=== PATIENT | male | born 1950 | race Caucasian/White ===

== ENCOUNTER → 2017-06-23 | Outpatient (REF) | payer OTHER | LOC: M LAB REF 15:46 | DX: R05 Cough (principal) | CPT/HCPCS: 87633 ==

== ENCOUNTER 2019-03-13 17:28 | Emergency (ER) | payer MEDICARE, OTHER ==
[~2019-03-13] VITALS: Ht 175.3 cm; Wt 90.9 kg
[2019-03-13] MEDS ORDERED: LIDOCAINE 1% MDV 20ML VIAL IM ONE (19:00)
[2019-03-13] MEDS ORDERED: IBUPROFEN 600 MG TAB PO ONE (19:00)
--- NOTE | 2019-03-13 19:53 | REP ---
RIGHT HAND SERIES: Four views of the right hand are performed. Somewhat comminuted nondisplaced fracture is seen of the 4th proximal phalanx. There is a nondisplaced fracture of the base of the 3rd proximal phalanx. There is a slightly displaced fracture of the distal 5th metacarpal. No other fracture or dislocation is seen. There is significant joint space narrowing at the 3rd metacarpophalangeal joint. There is diffuse narrowing of the interphalangeal joints. There is some air in the anterior soft tissues. IMPRESSION: Nondisplaced fracture base of 3rd proximal phalanx. Nondisplaced comminuted fracture 4th proximal phalanx. Slightly displaced fracture distal aspect of 5th metacarpal. Electronically Signed by Giovanni Marrero MD 03/15/2019 09:10 A
[2019-03-13] MEDS ORDERED: CEPHALEXIN 500 MG CAP PO ONE ×2 (20:45→21:00)
[2019-03-13] MEDS ORDERED: cefTRIAXone SOD 1 GM in D5W MINI-BAG PLUS 50 ML IV ONE (21:00)
[2019-03-13] MEDS ORDERED: NORC1TAB7 PO (21:01)
[2019-03-13] MEDS ORDERED: KEFL500C17 PO (21:01)
[2019-03-13] MEDS ORDERED: LIDOCAINE 1% SDV 5 ML VIAL DILUENT ONE (21:15)
[2019-03-13] MEDS ORDERED: cefTRIAXone SOD 1 GM VIAL (J0696) IM ONE (21:15)
[2019-03-13] MEDS ORDERED: ADACEL/BOOSTRIX VACCINE (DIPHTH/PERTUSS/ACELL/TETANUS)0.5ML SYR (90715) IM ONE (22:15)
[2019-03-13] MEDS ORDERED: NORCO 5/325MG TABLET (BULK FOR ED) PO ONE (22:30)
[2019-03-13 22:37] VITALS: BP 191/90
== END 2019-03-13 22:41 | disposition home or self-care (01) ==
LOC: M ED 17:28
DX: S62.642A Nondisplaced fracture of proximal phalanx of right middle finger, initial encounter for closed fracture (principal); S62.644A Nondisplaced fracture of proximal phalanx of right ring finger, initial encounter for closed fracture; S62.316A Displaced fracture of base of fifth metacarpal bone, right hand, initial encounter for closed fracture; S61.411A Laceration without foreign body of right hand, initial encounter; S61.212A Laceration without foreign body of right middle finger without damage to nail, initial encounter; T14.8XXA Other injury of unspecified body region, initial encounter; W23.0XXA Caught, crushed, jammed, or pinched between moving objects, initial encounter; Y92.099 Unspecified place in other non-institutional residence as the place of occurrence of the external cause; Y93.89 Activity, other specified; Y99.9 Unspecified external cause status
CPT/HCPCS: 12002; 29125; 73130; 90471; 90715; 96372; 99283; J0696

== ENCOUNTER 2020-03-22 17:12 | Inpatient (IN) | payer MEDICARE, OTHER ==
[~2020-03-22] VITALS: Ht 172.7 cm; Wt 98.6 kg
[~2020-03-22 17:12] MED LIST: KEFL500C17 PO; NORC1TAB7 PO
[2020-03-22] MEDS ORDERED: HYDR12CA PO (17:27)
[2020-03-22] MEDS ORDERED: VITA50005 PO (17:27)
[2020-03-22 18:03] LABS: BASO % 0.4 % (0.0-1.0); EOS # 0.1 10^3/uL (0.0-0.5); EOS % 0.9 % (0.0-3.0); HEMATOCRIT 52.5 % (42.0-52.0); HEMOGLOBIN 18.4 g/dl (13.5-17.5); LYMPH # 1.3 10^3/uL (1.5-5.0); LYMPH % 23.8 % (24.0-44.0); MEAN CORPUSCULAR HEMOGLOBIN 32.2 pg (27.0-33.0); MEAN CORPUSCULAR VOLUME 91.8 fl (80.0-96.0); MONO # 0.6 10^3/uL (0.0-0.8); MONO % 10.5 % (0.0-5.0); NEUTROPHILS # 3.6 10^3/uL (1.5-8.5); PLATELET COUNT, AUTOMATED 216 10^3/uL (150-450); RED BLOOD COUNT 5.72 10^6/uL (4.30-6.10); WHITE BLOOD COUNT 5.6 10^3/uL (4.0-10.0)
[2020-03-22 18:14] LABS: INR 0.97; PARTIAL THROMBOPLASTIN TIME 25.6 SECONDS (24.2-38.5); PROTHROMBIN TIME 13.1 SECONDS (12.5-14.3)
[2020-03-22 18:42] LABS: ALBUMIN 3.9 GM/DL (3.2-5.2); ALT/SGPT 503 U/L (12-78); BILIRUBIN,DIRECT 8.1 MG/DL (0.0-0.2); BILIRUBIN,TOTAL 10.5 MG/DL (0.2-1.0); BLOOD UREA NITROGEN 15 MG/DL (7-18); CARBON DIOXIDE LEVEL 27 MEQ/L (21-32); CHLORIDE LEVEL 100 MEQ/L (98-107); CK-MB VALUE MASS 1.5 NG/ML (<3.6); CPK CREATINE PHOSPHOKINASE 144 U/L (39-308); CREATININE FOR GFR 0.93 MG/DL (0.70-1.30); GLOMERULAR FILTRATION RATE > 60.0 (>49); GLUCOSE, FASTING 87 MG/DL (70-100); LIPASE 128 U/L (73-393); MB/CK RELATIVE INDEX 1.04 (< OR =4); POTASSIUM SERUM 3.1 MEQ/L (3.5-5.1); SODIUM LEVEL 138 MEQ/L (136-145); TOTAL PROTEIN 7.2 GM/DL (6.4-8.2); TROPONIN I < 0.02 NG/ML (< 0.10)
[2020-03-22] MEDS ORDERED: POTASSIUM CHLORIDE 10 MEQ SR TABLET PO ONE (20:00)
[2020-03-22] MEDS: GASTROGRAFIN SOLUTION 30ML PO SCH ×2 (20:35→21:00)
[2020-03-22] MEDS ORDERED: ISOVUE-370 76% 100ML VIAL As Ordered ONE (20:42)
--- NOTE | 2020-03-22 20:53 | ECGEPIP ---
[facility] - ED Test Date: 2020-03-22 Pat Name: WINTER HOYOS JR Department: Room: - Gender: Male Packing Checker: : 1950 Requested By: GEE Pittman Order Number: [id number] Reading MD: Maira Michael Measurements Intervals [place] Rate: 82 P: 30 DC: 166 QRS: 35 QRSD: 97 T: -10 QT: 372 QTc: 437 Interpretive Statements SINUS RHYTHM INFERIOR MYOCARDIAL INFARCTION, PROBABLY OLD NO PRIOR Electronically Signed on 03-22-2020 20:53:14 EDT by Maira Michael
--- NOTE | 2020-03-22 22:11 | REPVR ---
PROCEDURE INFORMATION: Exam: CT Abdomen And Pelvis With Contrast Exam date and time: 03/22/2020 9:55 PM Age: 69 years old Clinical indication: Abdominal pain; Additional info: Upper abd pain jaundiced TECHNIQUE: Imaging protocol: Computed tomography of the abdomen and pelvis with intravenous contrast. Radiation optimization: All CT scans at this facility use at least one of these dose optimization techniques: automated exposure control; mA and/or kV adjustment per patient size (includes targeted exams where dose is matched to clinical indication); or iterative reconstruction. Contrast material: ISOVUE 370; Contrast volume: 100 ml; Contrast route: INTRAVENOUS (IV); COMPARISON: No relevant prior studies available. FINDINGS: Liver: There is a diffuse decrease in hepatic parenchymal density, consistent with steatosis. Gallbladder and bile ducts: There are gallstones present. Mild gallbladder wall thickening. Clinical correlation to exclude cholecystitis suggested. No dilatation of the intra or extrahepatic biliary tree. Pancreas: Normal. No ductal dilation. Spleen: The spleen demonstrates punctate calcifications, consistent with remote granulomatous organism exposure. Adrenals: Normal. No mass. Kidneys and ureters: Bilateral simple renal cysts measure up to 1.9 cm in the left kidney. No follow-up suggested. Stomach and bowel: Moderate diverticulosis is present in the distal colon. No diverticulitis. Appendix: No evidence of appendicitis. Intraperitoneal space: Unremarkable. No free air. No significant fluid collection. Vasculature: The aortoiliac vessels demonstrate mild atherosclerotic calcification. Lymph nodes: Unremarkable. No enlarged lymph nodes. Urinary bladder: Unremarkable as visualized. Reproductive: The prostate gland demonstrates marked hyperplasia. Bones/joints: Mild anterolisthesis of L4 on L5. Mild central spinal stenosis L2-L3, moderate to severe central spinal stenosis L3-L4 and severe central spinal stenosis L4-L5. Soft tissues: Unremarkable. Other findings: Levoscoliosis. IMPRESSION: 1. There is a diffuse decrease in hepatic parenchymal density, consistent with steatosis. 2. There are gallstones present. Mild gallbladder wall thickening. Clinical correlation to exclude cholecystitis suggested. 3. Bilateral simple renal cysts measure up to 1.9 cm in the left kidney. No follow-up suggested. 4. Moderate diverticulosis is present in the distal colon. No diverticulitis. 5. Marked prostatic hyperplasia. COMMENTS: Consistent with the [employer]'s Incidental Findings Committee white paper (J Am Julissa Radiol 2018): Any incidental renal lesion less than 1 cm or classified as too small to characterize, or any incidental cystic renal lesion characterized as simple-appearing, is likely benign. No follow-up imaging is recommended for these lesions per consensus recommendations based on imaging criteria. Electronically signed by: Vicente Segovia On 03/22/2020 22:10:56 PM
--- NOTE | 2020-03-22 23:26 | HPEPDOC ---
General Date of Admission 03/22/20 Date of Service: Mar 22, 2020 Chief Complaint The patient is a 69-year-old male admitted with a reason for visit of Skin Issue. Source: Patient Exam Limitations: No limitations Timing/Duration: Day(s) Severity: Moderate Associated Symptoms: Loss of appetite History of Present Illness Patient is 69 years old male with past medical history of hypertension presented to the hospital with abdominal pain and jaundice. Patient stated that for past 3-4 days he has been having right upper quadrant pain, dark urine, nausea, vomiting and loss of appetite. In ER patient was found to have no leukocytosis, hemoglobin 18.4, total bilirubin 10.5, direct bilirubin 8.1, transaminitis, alkaline phosphatase 190. CT abdomen pelvis There is a diffuse decrease in h epatic parenchymal density, consistent with steatosis. There are gallstones present. Mild gallbladder wall thickening. Clinical correlation to exclude cholecystitis suggested. Home Medications Miscellaneous Medications Ergocalciferol (Vitamin D2) (Vitamin D2) 50,000 Units Cap, (Reported) Hydrochlorothiazide (Hydrochlorothiazide) 12.5 Mg Capsule, (Reported) Allergies Coded Allergies: No Known Allergies (Unverified , 03/13/19) Past Medical History Medical History Hypertension Family History Father had Parkinson Mother had colon cancer Social History * Smoker: Denies Alcohol: Denies Drugs: denies A-FIB/CHADSVASC A-FIB History Current/History of A-Fib/PAF?: No Current PO Anticoag Therapy: No Review of Systems Constitutional: Denies: Chills Eyes: Denies: Pain ENT: Denies: Head Aches, Ear Pain Skin: Reports: Jaundice; Denies: Rash Pulmonary: Denies: Dyspnea, Cough Cardiovascular: Denies: Chest Pain, Palpitations Gastrointestinal: Reports: Nausea, Vomiting Genitourinary: Denies: Dysuria, Frequency Hematologic: Denies: Bruising, Bleeding Excessively Endocrine: Denies: Polydipsia Musculoskeletal: Denies: Neck Pain, Back Pain Neurological: Denies: Weakness Psych: Reports: Mood Normal Physical Examination General Exam: Positive: Alert, Cooperative Eye Exam: Positive: PERRLA ENT Exam: Positive: Atraumatic Neck Exam: Positive: Supple; Negative: JVD Chest Exam: Positive: Clear to auscultation Heart Exam: Positive: Rate Normal Telemetry: Positive: No significant arrhythmia Abdomen Exam: Positive: BS Hypoactive, Tenderness (right upper quadrant) Extremity Exam: Negative: Clubbing Skin Exam: Negative: Nl turgor and temperature Neuro Exam: Positive: Strength at 5/5 X4 ext, Cranial Nerves 3-12 NL Psych Exam: Positive: Mental status NL Vital Signs Vital Signs Date Time Temp Pulse Resp B/P (MAP) Pulse Ox O2 Delivery O2 Flow Rate FiO2 03/22/20 20:30 84 171/83 (112) 95 03/22/20 19:15 18 Room Air 03/22/20 19:10 98.5 Laboratory Data Labs 24H Laboratory Tests 2 03/22/20 17:31: Immature Granulocyte % (Auto) 0.4, Neutrophils (%) (Auto) 64.0, Lymphocytes (%) (Auto) 23.8L, Monocytes (%) (Auto) 10.5H, Eosinophils (%) (Auto) 0.9, Basophils (%) (Auto) 0.4, Neutrophils # (Auto) 3.6, Lymphocytes # (Auto) 1.3L, Monocytes # (Auto) 0.6, Eosinophils # (Auto) 0.1, Basophils # (Auto) 0.0, Nucleated Red Blood Cells % (auto) 0.0, Anion Gap 11, Glomerular Filtration Rate > 60.0, Calcium Level 9.0, Total Bilirubin 10.5H, Direct Bilirubin 8.1H, Aspartate Amino Transf (AST/SGOT) 203H, Alanine Aminotransferase (ALT/SGPT) 503H, Alkaline Phosphatase 190H, Total Creatine Kinase 144, Creatine Kinase MB 1.5, Creatine Kinase MB Relative Index 1.04, Troponin I < 0.02, Total Protein 7.2, Albumin 3.9, Albumin/Globulin Ratio 1.2, Lipase 128 03/22/20 17:32: Prothrombin Time 13.1, Prothromb Time International Ratio 0.97, Activated Partial Thromboplast Time 25.6 CBC/BMP Laboratory Tests 03/22/20 17:31 Assessment/Plan Patient is 69 years old male with past medical history of hypertension presented to the hospital with abdominal pain and jaundice. Patient stated that for past 3-4 days he has been having right upper quadrant pain, dark urine, nausea, vomiting and loss of appetite. In ER patient was found to have no leukocytosis, hemoglobin 18.4, total bilirubin 10.5, direct bilirubin 8.1, transaminitis, alkaline phosphatase 190. CT abdomen pelvis There is a diffuse decrease in hepatic parenchymal density, consistent with steatosis. There are gallstones present. Mild gallbladder wall thickening. Clinical correlation to exclude cholecystitis suggested. Problems (1) Jaundice Status: Acute Problem Specific Plan: Consult Specialist Problem Text: Most likely secondary to choledocholithiasis CT is positive for gallstones Await ultrasound right upper quadrant Consider GI consult in the morning Nothing by mouth for now IV fluid Hepatitis panel ordered (2) Hyperbilirubinemia Status: Acute Problem Text: Most likely secondary to choledocholithiasis Await right upper quadrant ultrasound (3) Hypertensive urgency Status: Acute Problem Text: Added lisinopril 20 mg Continue to monitor Plan / VTE VTE Prophylaxis Ordered?: Yes LAURA NASSAR DO Mar 22, 2020 23:26
[2020-03-23] MEDS ORDERED: lisinopriL 20 MG TAB PO ONE
[2020-03-23] MEDS: NS 1,000 ML IV SCH ×3 (00:34→20:13)
--- NOTE | 2020-03-23 00:36 | REPVR ---
PROCEDURE INFORMATION: Exam: US Abdomen, Limited; Right Upper Quadrant Exam date and time: 03/23/2020 12:22 AM Age: 69 years old Clinical indication: Abnormal findings; Abnormal lab test; Elevated liver enzymes; Additional info: Elevated lfts eval gb/cbd TECHNIQUE: Imaging protocol: US abdomen. Real time ultrasound with image documentation. Limited exam focused on the right upper quadrant. COMPARISON: CT ABD/PEL W/IV ORAL CONTRAS 03/22/2020 9:46 PM FINDINGS: Liver: Normal. No masses. Gallbladder: Cholelithiasis. Gallbladder wall measures up to 4 mm which is mildly thickened. There is sludge within the gallbladder. Small amount of pericholecystic fluid. Common bile duct: Common bile duct measures within normal limits. Pancreas: Pancreas is poorly visualized. Right kidney: Right kidney measures up to 11 cm and is without hydronephrosis. Upper pole simple exophytic cyst measures 2.4 x 1.9 x 1.8 cm. Lower pole simple cyst measures 0.9 x 1.2 x 1.0 cm. IMPRESSION: Cholelithiasis with areas of mild gallbladder wall thickening and mild pericholecystic fluid. Findings raise concern for acute cholecystitis. Electronically signed by: Solitario Blanca On 03/23/2020 00:36:05 AM
[2020-03-23 01:08] VITALS: BP 172/92
[2020-03-23 06:00] VITALS: BP 145/81
[2020-03-23 06:17] LABS: HEMATOCRIT 49.2 % (42.0-52.0); HEMOGLOBIN 17.2 g/dl (13.5-17.5); MEAN CORPUSCULAR HEMOGLOBIN 32.3 pg (27.0-33.0); MEAN CORPUSCULAR VOLUME 92.5 fl (80.0-96.0); PLATELET COUNT, AUTOMATED 219 10^3/uL (150-450); RED BLOOD COUNT 5.32 10^6/uL (4.30-6.10); WHITE BLOOD COUNT 8.7 10^3/uL (4.0-10.0)
[2020-03-23 06:38] LABS: ALBUMIN 3.3 GM/DL (3.2-5.2); ALT/SGPT 441 U/L (12-78); BLOOD UREA NITROGEN 14 MG/DL (7-18); CALCIUM LEVEL 8.7 MG/DL (8.8-10.2); CARBON DIOXIDE LEVEL 25 MEQ/L (21-32); CHLORIDE LEVEL 101 MEQ/L (98-107); GLOMERULAR FILTRATION RATE > 60.0 (>49); GLUCOSE, FASTING 76 MG/DL (70-100); MAGNESIUM LEVEL 2.3 MG/DL (1.8-2.4); POTASSIUM SERUM 3.2 MEQ/L (3.5-5.1); SODIUM LEVEL 136 MEQ/L (136-145); TOTAL PROTEIN 6.9 GM/DL (6.4-8.2)
[2020-03-23] MEDS: lisinopriL 20 MG TAB PO SCH (08:45)
[2020-03-23] MEDS: hydroCHLOROthiazide 12.5 MG CAPSULE PO SCH (08:45)
[2020-03-23] MEDS: HEPARIN SOD (PORCINE) 5000UNITS/ML 1ML VIAL/SYRINGE SC SCH ×2 (08:46→20:14)
[2020-03-23] MEDS: PIPERACILLIN/TAZOBACTAM SOD 3.375 GM in D5W MINI-BAG PLUS 50 ML IV SCH ×3 (11:11→22:16)
[2020-03-23 11:36] LABS: HEPATITIS B SURFACE ANTIGEN NEGATIVE (NEGATIVE)
[2020-03-23 12:03] LABS: HEPATITIS C VIRUS ABY INDEX 0.1 INDEX (<0.8)
[2020-03-23 12:04] LABS: HEPATITIS B CORE ANTIBODY IGM NEGATIVE (NEGATIVE)
[2020-03-23 12:05] LABS: HEPATITIS A ANTIBODY IGM NEGATIVE (NEGATIVE)
[2020-03-23] MEDS ORDERED: POTASSIUM CHLORIDE 10 MEQ SR TABLET PO ONE (12:30)
[2020-03-23 13:44] VITALS: BP 148/82
--- NOTE | 2020-03-23 13:51 | IPNPDOC ---
Text Note Date of Service The patient was seen on 03/23/20. NOTE Patient was signed and examined by me this morning. The patient states that he still has this nausea and abdominal pain which is mostly on the right side, he also complains of having a lot of hesitancy and initiating the urine and states he has gone around 6-8 times within a span of couple of hours and feels that he is not completely emptying his bladder. PHYSICAL EXAMINATION: General: The patient is awake, alert, oriented x3, sitting up in the bed in no apparent distress. Head and Neck Exam: Extraocular muscles intact. Pupils equally round and reactive to light. Mucous membranes are moist. Neck is supple. There is no jugular venous distention (JVD). Cardiovascular: S1 and S2, regular rate. Trace edema of the bilateral lower ex tremities. Respiratory: Mild inspiratory crackles at the right base, mildly decreased breath sounds at the left side. Abdomen: Mild tenderness in the right upper quadrant and periumbilical area . P ositive bowel sounds. Nontender. No organomegaly. Genitourinary: Suprapubic tenderness. Musculoskeletal: Clubbing of the fingernails, no cyanosis was noted. Central Nervous System (CAD DRAFTSMAN): No focal deficit. Power is 5/5 in all extremities. Labs reviewed Radiology reviewed Assessment/Plan Patient is 69 years old male with past medical history of hypertension presented to the hospital with abdominal pain and was found to be jaundiced . Patient stated that for past 3-4 days he has been having right upper quadrant pain, dark urine, nausea, vomiting and loss of appetite. In ER patient was found to have no leukocytosis, hemoglobin 18.4, total bilirubin 10.5, direct bilirubin 8.1, transaminitis, alkaline phosphatase 190. CT abdomen pelvis There is a diffuse decrease in hepatic parenchymal density, consistent with steatosis. There are gallstones present. Mild gallbladder wall thickening. The patient was admitted for possible cholecystitis and obstructive jaundice Problems 1. Obstructive jaundice with possible cholecystitis. CT scan and ultrasound pointing towards obstructive pathology with possible cholecystitis. Patient has been started on IV Zosyn and surgery consult with Dr. Greenberg has been requested. No IV fluids and nothing by mouth at this time. Pain control with IV morphine. Continue pending the LFTs. Hepatitis panel also has been ordered. 2. Hypertension. Continue home medications and added lisinopril at this time. We'll continue to monitor Disposition. Depending upon surgical recommendations. VS,Fishbone, I+O VS, Fishbone, I+O Laboratory Tests 03/22/20 17:31 03/23/20 05:30 Vital Signs Date Time Temp Pulse Resp B/P (MAP) Pulse Ox O2 Delivery O2 Flow Rate FiO2 03/23/20 13:44 98.1 80 16 148/82 (104) 96 Room Air I&O- Last 24 Hours up to 6 AM 03/23/20 06:00 Intake Total 550 ml Output Total 300 ml Balance 250 ml WALE ROMEO MD Mar 23, 2020 13:51
[2020-03-23 22:00] VITALS: BP 140/74
[2020-03-24] MEDS: PIPERACILLIN/TAZOBACTAM SOD 3.375 GM in D5W MINI-BAG PLUS 50 ML IV SCH ×3 (05:00→17:28)
[2020-03-24 06:00] VITALS: BP 134/73
[2020-03-24 06:14] LABS: BASO % 0.3 % (0.0-1.0); EOS # 0.1 10^3/uL (0.0-0.5); EOS % 1.2 % (0.0-3.0); HEMATOCRIT 49.4 % (42.0-52.0); HEMOGLOBIN 16.5 g/dl (13.5-17.5); LYMPH # 1.4 10^3/uL (1.5-5.0); LYMPH % 20.4 % (24.0-44.0); MEAN CORPUSCULAR HEMOGLOBIN 31.4 pg (27.0-33.0); MEAN CORPUSCULAR HGB CONC 33.4 g/dl (32.0-36.5); MEAN CORPUSCULAR VOLUME 94.1 fl (80.0-96.0); MONO # 0.7 10^3/uL (0.0-0.8); MONO % 9.8 % (0.0-5.0); NEUTROPHILS # 4.7 10^3/uL (1.5-8.5); NEUTROPHILS % 67.9 % (36.0-66.0); PLATELET COUNT, AUTOMATED 236 10^3/uL (150-450); RED BLOOD COUNT 5.25 10^6/uL (4.30-6.10); WHITE BLOOD COUNT 6.9 10^3/uL (4.0-10.0)
[2020-03-24 06:34] LABS: ALBUMIN 3.3 GM/DL (3.2-5.2); ALT/SGPT 472 U/L (12-78); BILIRUBIN,TOTAL 3.9 MG/DL (0.2-1.0); BLOOD UREA NITROGEN 16 MG/DL (7-18); CALCIUM LEVEL 8.6 MG/DL (8.8-10.2); CARBON DIOXIDE LEVEL 25 MEQ/L (21-32); CHLORIDE LEVEL 104 MEQ/L (98-107); CREATININE FOR GFR 0.89 MG/DL (0.70-1.30); GLOMERULAR FILTRATION RATE > 60.0 (>49); GLUCOSE, FASTING 78 MG/DL (70-100); POTASSIUM SERUM 3.8 MEQ/L (3.5-5.1); SODIUM LEVEL 138 MEQ/L (136-145); TOTAL PROTEIN 6.5 GM/DL (6.4-8.2)
--- NOTE | 2020-03-24 08:00 | CR ---
DATE OF CONSULTATION: 03/23/2020 REASON FOR CONSULTATION: Elevated liver function tests and hyperbilirubinemia with possible cholecystitis. CONSULTING PHYSICIAN: Dr. Padilla. HISTORY OF PRESENT ILLNESS: The patient is a very pleasant 69-year-old man who reports that he noted for several days that his urine became a dark orangey color. He also noted some fairly diffuse abdominal pain with some abdominal fullness and bloating. In discussing this with him, he remembered that he had a meal of [employer] [place] fries and other foods on night, the , and noticed abdominal pain thereafter. It was the next day that he noticed some darkening of his urine. Since then, he has had persistent dark urine. On Monday the , he actually had some nausea and vomited at least once. Because of his persistent symptoms, he was seen in the emergency department on the . His labs showed a total bilirubin up to 10.5 with a direct bilirubin of 8.1. His other liver function tests were elevated, but not dramatically so. He underwent further evaluation including a gallbladder ultrasound and a CT scan of the abdomen and pelvis. The CT showed gallstones and suggested some mild gallbladder wall thickening. The ultrasound was interpreted as showing cholelithiasis with some mild thickening of the gallbladder wall. Because of these findings, the question of acute cholecystitis was raised, and I have been asked to evaluate the patient. ALLERGIES: The patient has no known drug allergies. HOME MEDICATIONS: - hydrochlorothiazide 12.5 mg daily. - vitamin D2 at 50,000 units p.o. weekly. PAST MEDICAL HISTORY: Significant only for some hypertension. He did not have a regular physician for quite some time until last year, when he injured his hand and was found to be hypertensive during the course of treatment for that. He now sees a doctor at the [facility] Dr. Boland. PAST SURGICAL HISTORY: Negative. SOCIAL HISTORY: The patient is . 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 He is a never smoker and denies any alcohol use. FAMILY HISTORY: Non-contributory. REVIEW OF SYSTEMS: He denies any chest pains, palpitations, or history of heart disease. He has had no cough, wheezing, or sputum production. He denies any history of diabetes or thyroid issues. He has had a kidney stone in the past. He does report some mild prostate enlargement symptoms with nocturia x1 and a weakened stream. These symptoms have worsened while here in the hospital. He denies any significant bone or joint issues. He has no history of deep vein thrombosis (DVT) or pulmonary embolus. He has no history of seizure, stroke, or chronic severe headaches. PHYSICAL EXAMINATION: GENERAL: Reveals a pleasant older man in no obvious acute distress. The patient is pleasant and alert. VITAL SIGNS: His most recent vital signs show a temperature of 98.1, pulse of 80, respirations of 16, and a blood pressure of 148/82. Room air oxygen saturation is in the mid to upper 90s. SKIN: Warm and dry. He is jaundiced, which is most noticeable in the sclerae, but he also appears somewhat generalized jaundice of the skin. NECK: Supple without mass and he has no carotid bruit. HEART: Shows a regular rate and rhythm. LUNGS: Clear to auscultation bilaterally. ABDOMEN: Quite protuberant and rounded. He has active bowel sounds. The abdomen is full, but still fairly soft. He does not have significant tenderness to palpation. There is no palpable mass. There is no fluid wave. EXTREMITIES: Show no peripheral edema. He has palpable radial and pedal pulses bilaterally. LABORATORY STUDIES: At the time of admission, showed a white count of 6, hemoglobin 18, hematocrit 52, and platelet count of 216,000. His differential count was normal. This morning, the repeat showed a white count of 9, hemoglobin 17, hematocrit 49. Chemistry profile from the evening of the , showed a total bilirubin of 10, direct of 8, AST 203, ALT 503, and alkaline phosphatase of 190. This morning, his total bilirubin was 6.0 with an AST of 195, ALT 441, and an alkaline phosphatase of 174. Potassium was slightly low at 3.1 and 3.2. He had a hepatitis A, B, and C panel that was all negative. His gallbladder ultrasound and CT imaging I reviewed. He has definite gallstones. There is some very mild patchy thickening of the gallbladder wall. I think the CT scan actually shows some dilation of his bile duct coursing through the head of the pancreas and in fact, there may be a small filling defect on one of the images. IMPRESSION: I think the patients history is pretty typical of obstruction from a common bile duct stone. I do not believe he has acute cholecystitis. The mild gallbladder wall thickening I think is just a response to the obstruction. I believe that the next step would probably most appropriately be an endoscopic retrograde cholangiopancreatography (ERCP), although I will leave it to the supervisor publications production to determine if magnetic resonance cholangiopancreatography (MRCP) is necessary first. If his common bile duct can be cleared of stones or debris, then I would be happy to proceed with a cholecystectomy after that. I spoke with the patient and his spouse about my interpretation of his studies and that a gastroenterology consultation would be appropriate. Certainly it is appropriate for him to be on antibiotics just to prevent the possibility of cholangitis. PLAN: I contacted the resident on duty [facility] to relay my interpretation of this consultation so that he could pass this along to the hospitalist and possibly speak with Dr. Degroot, who is apparently solution lead for gastroenterology. I will check in on the patient again tomorrow. MARTY
[2020-03-24] MEDS: NS 1,000 ML IV SCH ×2 (08:11→17:28)
[2020-03-24] MEDS: hydroCHLOROthiazide 12.5 MG CAPSULE PO SCH (08:13)
[2020-03-24] MEDS: HEPARIN SOD (PORCINE) 5000UNITS/ML 1ML VIAL/SYRINGE SC SCH ×2 (08:14→20:36)
[2020-03-24] MEDS: lisinopriL 20 MG TAB PO SCH (08:14)
[2020-03-24 14:00] VITALS: BP 149/78
--- NOTE | 2020-03-24 14:03 | IPNPDOC ---
Text Note Date of Service The patient was seen on 03/24/20. NOTE Patient was signed and examined by me this morning. The patient states that his abdominal pain has been improving. He is scheduled for an MRCP today. PHYSICAL EXAMINATION: General: The patient is awake, alert, oriented x3, sitting up in the bed in no apparent distress. Head and Neck Exam: Extraocular muscles intact. Pupils equally round and reactive to light. Mucous membranes are moist. Neck is supple. There is no jugular venous distention (JVD). Cardiovascular: S1 and S2, regular rate. Trace edema of the bilateral lower extremities. Respiratory: Lungs are clear auscultation bilaterally Abdomen: Mild tenderness in the right upper quadrant and periumbilical area . Positive bowel sounds. Nontender. No organomegaly. Genitourinary: Suprapubic tenderness. Musculoskeletal: Clubbing of the fingernails, no cyanosis was noted. Central Nervous System (DITCH REPAIRER): No focal deficit. Power is 5/5 in all extremities. Labs reviewed Radiology reviewed Assessment/Plan Patient is 69 years old male with past medical history of hypertension presented to the hospital with abdominal pain and was found to be jaundiced . Patient stated that for past 3-4 days he has been having right upper quadrant pain, dark urine, nausea, vomiting and loss of appetite. In ER patient was found to have no leukocytosis, hemoglobin 18.4, total bilirubin 10.5, direct bilirubin 8.1, transaminitis, alkaline phosphatase 190. CT abdomen pelvis There is a diffuse decrease in hepatic parenchymal density, consistent with steatosis. There are gallstones present. Mild gallbladder wall thickening. The patient was admitted for possible cholecystitis and obstructive jaundice. The patient was started on IV Zosyn and surgery was consulted and as per them, they think that the patient probably has a CBD issue rather than a gallbladder issue, and the patient will e ventually require a cholecystectomy as an outpatient. Currently, the patient will be undergoing more sleepy and if there is any pathology seen on MRCP. GI will be consulted for possible ERCP. Currently, the patient's LFTs and bilirubin has been trending down. Problems 1. Obstructive jaundice with possible cholecystitis. CT scan and ultrasound pointing towards obstructive pathology with possible cholecystitis versus choledocholithiasis. Patient has been started on IV Zosyn and surgery consult with Dr. Greenberg and as per them, they think that the patient probably has a CBD issue rather than a gallbladder issue, and the patient will eventually require a cholecystectomy as an outpatient. Currently, the patient will be undergoing more sleepy and if there is any pathology seen on MRCP. GI will be consulted for possible ERCP. Currently, the patient's LFTs and bilirubin has been trending down. 2. Hypertension. Continue home medications and added lisinopril at this time. We'll continue to monitor Disposition. Depending upon MRCP results. VS,Fishbone, I+O VS, Fishbone, I+O Laboratory Tests 03/24/20 05:34 Vital Signs Date Time Temp Pulse Resp B/P (MAP) Pulse Ox O2 Delivery O2 Flow Rate FiO2 03/24/20 08:14 149/76 03/24/20 06:00 98.3 86 18 96 Room Air I&O- Last 24 Hours up to 6 AM 03/24/20 06:00 Intake Total 1750 ml Output Total 2025 ml Balance -275 ml WALE ROMEO MD Mar 24, 2020 14:02
--- NOTE | 2020-03-24 17:41 | REPVR ---
PROCEDURE INFORMATION: Exam: MR Abdomen Without Contrast Exam date and time: 03/24/2020 9:41 AM Age: 69 years old Clinical indication: Abdominal pain; Generalized; Patient HX: Mrcp; Additional info: Cbd stone TECHNIQUE: Imaging protocol: MR of the abdomen without contrast. 3D rendering (Not supervised by radiologist): MIP and/or 3D reconstructed images were created by the technologist. COMPARISON: CT ABD/PEL W/IV ORAL CONTRAS 03/22/2020 9:46 PM FINDINGS: Liver: No mass. Gallbladder and bile ducts: Cholelithiasis is present, with no definite evidence of acute cholecystitis. No evidence of obstructive cholangiopathy. The common bile duct is normal in size measuring maximally 4.0 mm in diameter. A tiny intraductal filling defect suggestive of nonobstructing choledocholithiasis is seen in the mid-distal common bile duct on frame 37 of series 501 and frames 4 through 10 of series 401. No significant intrahepatic biliary ductal dilatation. The differential diagnosis is debris within the common bile duct adherent to the wall of the duct. Pancreas: The pancreas and main pancreatic duct are normal. Spleen: Unremarkable. No splenomegaly. Adrenals: Unremarkable. No mass. Kidneys and ureters: A small 1.9 cm transverse diameter focus of high T2 signal is seen in the mid-pole left kidney, likely representing a Bosniak type I simple cyst. This correlates with the recent CT abdomen and pelvis findings from 03/22/2020. Stomach and bowel: Visualized stomach and intestines are unremarkable. Arteries: No abdominal aortic aneurysm. Bones/joints: Portions of the thoracic and lumbar spine visualized show mild levoscoliosis of the lumbar spine, apex at L2/L3. Soft tissues: Unremarkable. IMPRESSION: 1. Cholelithiasis is present, with no definite evidence of acute cholecystitis. 2. No evidence of obstructive cholangiopathy. The common bile duct is normal in size measuring maximally 4.0 mm in diameter. A tiny intraductal filling defect suggestive of nonobstructing choledocholithiasis is seen in the mid-distal common bile duct on frame 37 of series 501 and frames 4 through 10 of series 401. No significant intrahepatic biliary ductal dilatation. The differential diagnosis is debris within the common bile duct adherent to the wall of the duct. 3. The pancreas and main pancreatic duct are normal. 4. A small 1.9 cm transverse diameter focus of high T2 signal is seen in the mid-pole left kidney, likely representing a Bosniak type I simple cyst. This correlates with the recent CT abdomen and pelvis findings from 03/22/2020. No further follow-up recommended. Reference: Denisse FRANKLIN, Management of the Incidental Renal Mass on CT: A White Paper of the ACR Incidental Findings Committee, J Am Julissa Radiol 2018. 5. Mild levoscoliosis of the lumbar spine, apex at L2/L3. COMMENTS: Consistent with the [employer]'s Incidental Findings Committee white paper (J Am Julissa Radiol 2018): Any incidental renal lesion less than 1 cm or classified as too small to characterize, or any incidental cystic renal lesion characterized as simple-appearing, is likely benign. No follow-up imaging is recommended for these lesions per consensus recommendations based on imaging criteria. Electronically signed by: Albin Youngblood On 03/24/2020 17:41:02 PM
[2020-03-24 22:00] VITALS: BP 141/76
[2020-03-25] MEDS: NS 1,000 ML IV SCH ×2 (04:25→10:06)
[2020-03-25] MEDS: PIPERACILLIN/TAZOBACTAM SOD 3.375 GM in D5W MINI-BAG PLUS 50 ML IV SCH ×5 (04:25→17:38)
[2020-03-25 05:53] LABS: BASO % 0.3 % (0.0-1.0); EOS # 0.1 10^3/uL (0.0-0.5); EOS % 1.8 % (0.0-3.0); HEMATOCRIT 46.2 % (42.0-52.0); HEMOGLOBIN 15.4 g/dl (13.5-17.5); LYMPH # 1.3 10^3/uL (1.5-5.0); LYMPH % 22.1 % (24.0-44.0); MEAN CORPUSCULAR HEMOGLOBIN 31.6 pg (27.0-33.0); MEAN CORPUSCULAR HGB CONC 33.3 g/dl (32.0-36.5); MEAN CORPUSCULAR VOLUME 94.7 fl (80.0-96.0); MONO # 0.6 10^3/uL (0.0-0.8); MONO % 10.6 % (0.0-5.0); NEUTROPHILS # 3.9 10^3/uL (1.5-8.5); NEUTROPHILS % 64.7 % (36.0-66.0); PLATELET COUNT, AUTOMATED 202 10^3/uL (150-450); RED BLOOD COUNT 4.88 10^6/uL (4.30-6.10)
[2020-03-25 06:00] VITALS: BP 151/80
[2020-03-25 06:24] LABS: ALBUMIN 2.9 GM/DL (3.2-5.2); ALT/SGPT 412 U/L (12-78); BILIRUBIN,TOTAL 2.7 MG/DL (0.2-1.0); BLOOD UREA NITROGEN 14 MG/DL (7-18); CALCIUM LEVEL 8.3 MG/DL (8.8-10.2); CARBON DIOXIDE LEVEL 26 MEQ/L (21-32); CHLORIDE LEVEL 105 MEQ/L (98-107); CREATININE FOR GFR 0.85 MG/DL (0.70-1.30); GLOMERULAR FILTRATION RATE > 60.0 (>49); GLUCOSE, FASTING 80 MG/DL (70-100); POTASSIUM SERUM 3.5 MEQ/L (3.5-5.1); SODIUM LEVEL 140 MEQ/L (136-145); TOTAL PROTEIN 6.3 GM/DL (6.4-8.2)
[2020-03-25] MEDS: HEPARIN SOD (PORCINE) 5000UNITS/ML 1ML VIAL/SYRINGE SC SCH ×2 (10:02→20:41)
[2020-03-25] MEDS: hydroCHLOROthiazide 12.5 MG CAPSULE PO SCH (10:04)
[2020-03-25] MEDS: lisinopriL 20 MG TAB PO SCH (10:05)
[2020-03-25] MEDS: TAMSULOSIN 0.4 MG CAP PO SCH (11:35)
[2020-03-25 14:00] VITALS: BP 147/74
--- NOTE | 2020-03-25 17:10 | IPNPDOC ---
Date Seen The patient was seen on 03/25/20. Progress Note SUBJECTIVE: MRI shows no obstructive pathology, although cannot r/o that stone has already passed. Abdominal pain resolved, jaundiced improved. Denies chest pain, sob, fevers, chills. OBJECTIVE: PHYSICAL EXAMINATION: VS: Please see below General: The patient is awake, alert, oriented x3, sitting up in the bed in no apparent distress. Head and Neck Exam: Sclera mildly yellow-improving. Extraocular muscles intact. Pupils equally round and reactive to light. Mucous membranes are moist. Neck is supple. There is no jugular venous distention (JVD). Cardiovascular: S1 and S2, regular rate. Trace edema of the bilateral lower extremities. Respiratory: Lungs are clear auscultation bilaterally Abdomen: No longer has tenderness in right upper quadrant and periumbilical area . Positive bowel sounds. Nontender. No organomegaly. Genitourinary: Deferred Musculoskeletal: Clubbing of the fingernails, no cyanosis was noted. Central Nervous System (INHALATION THERAPY TEACHER): No focal deficit. Power is 5/5 in all extremities. LABORATORY: Please see below IMAGING: MRI ABD: 1. Cholelithiasis is present, with no definite evidence of acute cholecystitis. 2. No evidence of obstructive cholangiopathy. The common bile duct is normal in size measuring maximally 4.0 mm in diameter. A tiny intraductal filling defect suggestive of nonobstructing choledocholithiasis is seen in the mid-distal common bile duct on frame 37 of series 501 and frames 4 through 10 of series 401. No significant intrahepatic biliary ductal dilatation. The differential diagnosis is debris within the common bile duct adherent to the wall of the duct. 3. The pancreas and main pancreatic duct are normal. 4. A small 1.9 cm transverse diameter focus of high T2 signal is seen in the mid-pole left kidney, likely representing a Bosniak type I simple cyst. This correlates with the recent CT abdomen and pelvis findings from 03/22/2020. No further follow-up recommended. 5. Mild levoscoliosis of the lumbar spine, apex at L2/L3. ASSESSMENT: Patient is 69 years old male with past medical history of hypertension presented to the hospital with abdominal pain admitted for acute cholecystitis, questionable biliary tree obstruction. PLAN: 1. Acute cholecystitis, cannot r/o biliary tree stone that has passed -AST/ALT, alk phos, jaundice improving -WBC wnl, afebrile -Abdominal pain resolved. -MRI abd above. -Per GI, likely acute cholecystitis and common to see liver inflammation with elevated AST/ALT, jaundice. -Surgery: likely needing o/p cholecystectomy -At this time advancing diet as tolerated, c/w Zosyn (will need to c/w 10 days total of abx) -F/u CMP in the AM. 2. Hypertension. -Increased likely 2/2 to IVFs -C/w home meds, can give dose of lasix if needed. 3. DVT px -heparin DISPOSITION: If tolerates diet and abdominal pain does not return, will consider early discharge in the AM. Will need f/u with both PCP and Dr. Greenberg (surgery) at discharge. VS, I&O, 24H, Fishbone Vital Signs/I&O Vital Signs Date Time Temp Pulse Resp B/P (MAP) Pulse Ox O2 Delivery O2 Flow Rate FiO2 03/25/20 14:00 97.9 77 18 147/74 (98) 96 Room Air I&O- Last 24 Hours up to 6 AM 03/25/20 06:00 Intake Total 1100 ml Output Total 850 ml Balance 250 ml Laboratory Data 24H LABS Laboratory Tests 2 03/25/20 05:29: Immature Granulocyte % (Auto) 0.5, Neutrophils (%) (Auto) 64.7, Lymphocytes (%) (Auto) 22.1L, Monocytes (%) (Auto) 10.6H, Eosinophils (%) (Auto) 1.8, Basophils (%) (Auto) 0.3, Neutrophils # (Auto) 3.9, Lymphocytes # (Auto) 1.3L, Monocytes # (Auto) 0.6, Eosinophils # (Auto) 0.1, Basophils # (Auto) 0.0, Nucleated Red Blood Cells % (auto) 0.0, Anion Gap 9, Glomerular Filtration Rate > 60.0, Calcium Level 8.3L, Total Bilirubin 2.7H, Aspartate Amino Transf (AST/SGOT) 177H, Alanine Aminotransferase (ALT/SGPT) 412H, Alkaline Phosphatase 126H, Total Protein 6.3L, Albumin 2.9L, Albumin/Globulin Ratio 0.9 CBC/BMP Laboratory Tests 03/25/20 05:29 Current Medications Current Medications Medications (Trade) Dose Ordered Sig/Henok Route PRN Reason Start Time Stop Time Status Last Admin Dose Admin Diatrizoate Meglum/ Diatrizoate Sod (Gastrografin) 10 ml Q30M PO 03/22/20 19:30 03/22/20 20:01 DC 03/22/20 21:00 Heparin Sodium (Porcine) (Heparin) 5,000 units Q12H SC 03/23/20 09:00 03/25/20 10:02 Home Med (Med Rec Complete!) ASDIRECTED XX 03/22/20 23:45 03/22/20 23:34 DC Hydrochlorothiazide (Hydrodiuril) 12.5 mg DAILY PO 03/23/20 09:00 03/25/20 10:04 Lisinopril (Prinivil) 20 mg DAILY PO 03/23/20 09:00 03/25/20 10:05 Piperacillin Sod/ Tazobactam Sod 3.375 gm/Dextrose 50 ml @ 50 mls/hr Q6H IV 03/23/20 11:00 03/25/20 10:01 Sodium Chloride 1,000 ml @ 100 mls/hr Q10H IV 03/22/20 23:30 03/25/20 10:34 DC 03/25/20 10:06 Tamsulosin HCl (Flomax) 0.4 mg DAILY PO 03/25/20 09:00 03/25/20 11:35 Allergies Coded Allergies: No Known Allergies (Unverified , 03/13/19) Margarita Melendrez MD Mar 25, 2020 17:10
[2020-03-25 22:00] VITALS: BP 147/73
[2020-03-26] MEDS: PIPERACILLIN/TAZOBACTAM SOD 3.375 GM in D5W MINI-BAG PLUS 50 ML IV SCH ×3 (00:03→09:41)
[2020-03-26 06:00] VITALS: BP 143/73
[2020-03-26 06:13] LABS: BASO % 0.5 % (0.0-1.0); EOS # 0.1 10^3/uL (0.0-0.5); EOS % 1.9 % (0.0-3.0); HEMATOCRIT 45.8 % (42.0-52.0); HEMOGLOBIN 15.5 g/dl (13.5-17.5); LYMPH # 1.4 10^3/uL (1.5-5.0); LYMPH % 23.8 % (24.0-44.0); MEAN CORPUSCULAR HEMOGLOBIN 31.9 pg (27.0-33.0); MEAN CORPUSCULAR HGB CONC 33.8 g/dl (32.0-36.5); MEAN CORPUSCULAR VOLUME 94.2 fl (80.0-96.0); MONO # 0.6 10^3/uL (0.0-0.8); MONO % 9.9 % (0.0-5.0); NEUTROPHILS # 3.6 10^3/uL (1.5-8.5); NEUTROPHILS % 63.7 % (36.0-66.0); PLATELET COUNT, AUTOMATED 203 10^3/uL (150-450); RED BLOOD COUNT 4.86 10^6/uL (4.30-6.10); WHITE BLOOD COUNT 5.7 10^3/uL (4.0-10.0)
[2020-03-26 06:37] LABS: ALT/SGPT 393 U/L (12-78); BILIRUBIN,TOTAL 2.3 MG/DL (0.2-1.0); BLOOD UREA NITROGEN 11 MG/DL (7-18); CALCIUM LEVEL 8.7 MG/DL (8.8-10.2); CARBON DIOXIDE LEVEL 29 MEQ/L (21-32); CHLORIDE LEVEL 104 MEQ/L (98-107); CREATININE FOR GFR 0.79 MG/DL (0.70-1.30); GLOMERULAR FILTRATION RATE > 60.0 (>49); GLUCOSE, FASTING 95 MG/DL (70-100); POTASSIUM SERUM 3.3 MEQ/L (3.5-5.1); SODIUM LEVEL 139 MEQ/L (136-145); TOTAL PROTEIN 5.9 GM/DL (6.4-8.2)
[2020-03-26] MEDS ORDERED: LISI-538 PO (08:09)
[2020-03-26] MEDS ORDERED: FLOM0.4C39 PO (08:09)
[2020-03-26] MEDS ORDERED: PROB1CAP10 PO (08:11)
[2020-03-26] MEDS ORDERED: AUGM875T28 PO (08:11)
[2020-03-26] MEDS ORDERED: POTASSIUM CHLORIDE 10 MEQ SR TABLET PO SCH (09:00)
[2020-03-26 09:43] VITALS: BP 139/74
[2020-03-26] MEDS: lisinopriL 20 MG TAB PO SCH (09:43)
[2020-03-26] MEDS: TAMSULOSIN 0.4 MG CAP PO SCH (09:43)
[2020-03-26] MEDS: hydroCHLOROthiazide 12.5 MG CAPSULE PO SCH (09:43)
[2020-03-26] MEDS: HEPARIN SOD (PORCINE) 5000UNITS/ML 1ML VIAL/SYRINGE SC SCH (09:43)
--- NOTE | 2020-03-26 15:41 | DS.PDOC ---
Discharge Summary General Date of Admission Mar 22, 2020 at 23:13 Date of Discharge 03/26/20 Attending Physician: Margarita Melendrez MD Discharge Summary HPI: Patient is 69 years old male with past medical history of hypertension presented to the hospital with abdominal pain and jaundice. Patient stated that for past 3-4 days he has been having right upper quadrant pain, dark urine, nausea, vomiting and loss of appetite. In ER patient was found to have no leukocytosis, hemoglobin 18.4, total bilirubin 10.5, direct bilirubin 8.1, transaminitis, alkaline phosphatase 190. CT abdomen pelvis There is a diffuse decrease in hepatic parenchymal density, consistent with steatosis. There are gallstones present. Mild gallbladder wall thickening. Clinical correlation to exclude cholecystitis suggested. HOSPITAL COURSE: Patient was started on Zosyn and over his hospital stay abnormal AST/ALT, alk phos and bili improved slowly. He was evaluated by surgery who did not think this was a surgical issue at this time but at some point he should have o/p cholecystectomy. MRI abdomen was done, did not show obstruction in biliary tree or gallbladder. GI was curb-sided and believed this was likely acute cholecystitis, requiring continued abx treatment for total of 10 days and f/u with surgery. He tolerated diet well and by 03/26/20 patient much improved. No abdominal pain, chest pain, sob, fevers. he will have f/u with PCP and surgery made prior to discharge. PMH: ?BPH Hypertension FAMILY HISTORY: Father had Parkinson Mother had colon cancer Social History * Smoker: Denies Alcohol: Denies Drugs: denies w. DISCHARGE MEDICATIONS: Please see below. PHYSICAL EXAMINATION: VS: Please see below General: The patient is awake, alert, oriented x3, sitting up in the bed in no apparent distress. Head and Neck Exam: Sclera mildly yellow-improving. Extraocular muscles intact. Pupils equally round and reactive to light. Mucous membranes are moist. Neck is supple. There is no jugular venous distention (JVD). Cardiovascular: S1 and S2, regular rate. Trace edema of the bilateral lower extremities. Respiratory: Lungs are clear auscultation bilaterally Abdomen: . Positive bowel sounds. Nontender. No organomegaly. Genitourinary: Deferred Musculoskeletal: Clubbing of the fingernails, no cyanosis was noted. Central Nervous System (CARDIAC CATH LAB RADIOLOGY TECHNOLOGIST): No focal deficit. Power is 5/5 in all extremities. LABORATORY: Please see below IMAGING: MRI ABD: 1. Cholelithiasis is present, with no definite evidence of acute cholecystitis. 2. No evidence of obstructive cholangiopathy. The common bile duct is normal in size measuring maximally 4.0 mm in diameter. A tiny intraductal filling defect suggestive of nonobstructing choledocholithiasis is seen in the mid-distal common bile duct on frame 37 of series 501 and frames 4 through 10 of series 401. No significant intrahepatic biliary ductal dilatation. The differential diagnosis is debris within the common bile duct adherent to the wall of the duct. 3. The pancreas and main pancreatic duct are normal. 4. A small 1.9 cm transverse diameter focus of high T2 signal is seen in the mid-pole left kidney, likely representing a Bosniak type I simple cyst. This correlates with the recent CT abdomen and pelvis findings from 03/22/2020. No further follow-up recommended. 5. Mild levoscoliosis of the lumbar spine, apex at L2/L3. ASSESSMENT: Patient is 69 years old male with past medical history of hypertension presented to the hospital with abdominal pain admitted for acute cholecystitis, questionable biliary tree obstruction. PLAN: Acute cholecystitis, cannot r/o biliary tree stone that has passed -AST/ALT, alk phos, jaundice improving -WBC wnl, afebrile -Abdominal pain resolved. -MRI abd above. -Per GI, likely acute cholecystitis and common to see liver inflammation with elevated AST/ALT, jaundice. -Surgery: likely needing o/p cholecystectomy -Tolerated advanced diet -C/w augmentin BID x 7 additional days to complete total of 10 days abx -F/u with PCP within 1-2 weeks, surgery as scheduled. Hypertension. -Increased likely 2/2 to IVFs -C/w HCTZ plus lisinopril on d/c Urinary retention likely 2/2 to BPH -Hx of disruption of urinary stream, difficulty urinating at times -Started on flomax daily, f/u with PCP DISPOSITION: D/c home today with f/u with both PCP and Dr. Greenberg (surgery). TIME SPENT ON DISCHARGE: Greater than 30 minutes. Vital Signs/I&Os Vital Signs Date Time Temp Pulse Resp B/P (MAP) Pulse Ox O2 Delivery O2 Flow Rate FiO2 03/26/20 09:43 139/74 10/22/20 06:00 98.2 72 17 97 Room Air I&O- Last 24 Hours up to 6 AM 03/26/20 05:59 Intake Total 2030 ml Output Total 1800 ml Balance 230 ml Laboratory Data Labs 24H Laboratory Tests 2 03/26/20 05:46: Immature Granulocyte % (Auto) 0.2, Neutrophils (%) (Auto) 63.7, Lymphocytes (%) (Auto) 23.8L, Monocytes (%) (Auto) 9.9H, Eosinophils (%) (Auto) 1.9, Basophils (%) (Auto) 0.5, Neutrophils # (Auto) 3.6, Lymphocytes # (Auto) 1.4L, Monocytes # (Auto) 0.6, Eosinophils # (Auto) 0.1, Basophils # (Auto) 0.0, Nucleated Red Blood Cells % (auto) 0.0, Anion Gap 6L, Glomerular Filtration Rate > 60.0, Calcium Level 8.7L, Total Bilirubin 2.3H, Aspartate Amino Transf (AST/SGOT) 167H, Alanine Aminotransferase (ALT/SGPT) 393H, Alkaline Phosphatase 115, Total Protein 5.9L, Albumin 3.0L, Albumin/Globulin Ratio 1.0 CBC/BMP Laboratory Tests 03/26/20 05:46 Discharge Medications Scheduled Amoxicillin/Potassium Clav (Augmentin 875-125 Tablet) 1 Each Tablet, 1 TAB PO BID Ergocalciferol (Vitamin D2) (Vitamin D2) 50,000 Units Cap, 50,000 UNITS PO QWEEK, (Reported) Hydrochlorothiazide (Hydrochlorothiazide) 12.5 Mg Capsule, 12.5 MG PO DAILY, (Re ported) Lactobacillus Acidophilus (Probiotic Acidophilus) 1.5 Mg Capsule, 1 CAP PO BIDWM Lisinopril (Lisinopril) 20 Mg Tablet, 20 MG PO DAILY Tamsulosin HCl (Flomax) 0.4 Mg Capsule, 0.4 MG PO DAILY Allergies Coded Allergies: No Known Allergies (Unverified , 03/13/19) Margarita Melendrez MD Mar 26, 2020 15:41
== END 2020-03-26 12:36 | disposition home or self-care (01) | DRG 446 ==
LOC: M ED 17:12 → M ED INP 23:13 → ENRESERV 23:37 → M MSPAV 03-23 01:04
PROVIDERS: ADMIT Internal Medicine; ATTEND Internal Medicine
DX: K80.71 Calculus of gallbladder and bile duct without cholecystitis with obstruction (principal); I10 Essential (primary) hypertension; N40.0 Benign prostatic hyperplasia without lower urinary tract symptoms; R33.9 Retention of urine, unspecified; Z79.899 Other long term (current) drug therapy; I16.0 Hypertensive urgency

== ENCOUNTER → 2020-05-07 | Outpatient (CLI) | payer MEDICARE, OTHER ==
[~2020-05-07] MED LIST changes: +AUGM875T28 PO; +FLOM0.4C39 PO; +HYDR12CA PO; +LISI-538 PO; +PROB1CAP10 PO; +PROBCAP14 PO; +VITA50005 PO
== END ==
LOC: M LABSMTC 10:53
PROVIDERS: ATTEND Anesthesiology
DX: Z01.812 Encounter for preprocedural laboratory examination (principal); Z20.828 Contact with and (suspected) exposure to other viral communicable diseases

== ENCOUNTER 2020-05-12 07:29 | Day surgery (SDC) | payer MEDICARE, OTHER ==
[~2020-05-12] VITALS: Ht 170.2 cm; Wt 94.8 kg
[~2020-05-12 07:29] MED LIST changes: +LR 1,000 ML IV ONE; +ceFAZolin SOD 2 GM in IV 1 EA IV ONE
[2020-05-12] MEDS ORDERED: MIDAZOLAM INJ 2MG/2ML VIAL (J2250 PER 1MG) As Ordered ONE (07:56)
[2020-05-12] MEDS ORDERED: LIDOCAINE 2% 100MG/5ML SDV (FOR ANES.) As Ordered ONE (07:56)
[2020-05-12] MEDS ORDERED: fentaNYL 250 MCG/5 ML INJECTION (J3010) As Ordered ONE (07:56)
[2020-05-12] MEDS ORDERED: ROCURONIUM BROMIDE 50 MG/5 ML VIAL As Ordered ONE ×2 (07:56→10:01)
[2020-05-12] MEDS ORDERED: ONDANSETRON 4MG/2ML VIAL As Ordered ONE (07:57)
[2020-05-12] MEDS ORDERED: KETOROLAC 60MG 2ML VIAL As Ordered ONE (07:57)
[2020-05-12] MEDS ORDERED: dexameTHASONE 4 MG/ML 1ML VIAL (J1100 PER 1MG) As Ordered ONE (07:57)
[2020-05-12] MEDS ORDERED: propofoL 200 MG/20 ML VIAL As Ordered ONE ×2 (07:57→11:17)
[2020-05-12] MEDS ORDERED: BUPIVACAINE HCL 0.25% 30ML VIAL As Ordered ONE (08:56)
[2020-05-12] MEDS ORDERED: CONRAY-60 60% 50ML VIAL (Q9961) As Ordered ONE (09:14)
[2020-05-12] MEDS ORDERED: LACRILUBE (AKWA TEARS) OPHTH OINT 3.5 GM As Ordered ONE (09:32)
[2020-05-12] MEDS ORDERED: PHENYLephrine HCL 500 MCG/5 ML (100MCG/ML) SYRINGE (J2370) As Ordered ONE (09:38)
[2020-05-12] MEDS ORDERED: ACETAMINOPHEN 1000MG 100ML IV BTL (OFIRMEV) (J0131 PER 10MG) As Ordered ONE (09:39)
[2020-05-12] MEDS ORDERED: SUGAMMADEX SODIUM 500 MG/5 ML VIAL (BRIDION) As Ordered ONE (09:41)
[2020-05-12] MEDS ORDERED: ALBUTEROL 6.7GM INHALER **FOR ANES. CART/OMNICELL ONLY As Ordered ONE (09:42)
--- NOTE | 2020-05-12 11:17 | REP ---
INDICATION: LAP PAULINE WITH IOC. Intraoperative cholangiogram COMPARISON: None. TECHNIQUE: Four views. 10.0 seconds of fluoroscopy time. FINDINGS: A sequence of 4 last image hold fluoroscopically obtained spot radiographs of the right upper quadrant taken during contrast injection via the cystic duct show normal caliber homogeneous common bile duct with spill into the duodenum. No extravasation. No filling defect to suggest choledocholithiasis. IMPRESSION: Unremarkable intraoperative cholangiogram. <Electronically signed by Hebert Posada > 05/12/20 [id number]
[2020-05-12] MEDS ORDERED: fentaNYL 100 MCG/2 ML INJECTION (J3010) IV PRN (12:15)
[2020-05-12] MEDS ORDERED: ONDANSETRON 4MG/2ML VIAL IV PRN (12:15)
[2020-05-12] MEDS ORDERED: ACETAMINOPHEN 500 MG TAB PO PRN (12:15)
[2020-05-12] MEDS ORDERED: PERCOCET 5MG/325MG TAB PO PRN (12:15)
[2020-05-12] MEDS ORDERED: LR 1,000 ML IV SCH (12:15)
[2020-05-12] MEDS ORDERED: METOCLOPRAMIDE INJ 10MG/2ML VIAL (J2765 PER 1) IV PRN (12:15)
[2020-05-12] MEDS ORDERED: IBUPROFEN 600MG TAB PO PRN (12:15)
[2020-05-12 13:55] VITALS: BP 162/75
--- NOTE | 2020-05-13 09:19 | RO ---
OPERATIVE NOTE DATE OF OPERATION: 05/12/2020 PREOPERATIVE DIAGNOSIS: Cholelithiasis with recent choledocholithiasis. POSTOPERATIVE DIAGNOSIS: Cholelithiasis with recent choledocholithiasis. PROCEDURE PERFORMED: Laparoscopic cholecystectomy with intraoperative cholangiogram. SURGEON: Thony Greenberg M.D. ANESTHESIA: General. INDICATIONS FOR PROCEDURE: Patient is a 69-year-old man who was recently admitted to the hospital with jaundice and was found to have cholelithiasis. An MRI did not show any large common bile duct stones but there was a suggestion of small amount of debris. His liver function tests returned toward normal and he was subsequently discharged home. The patient is now coming in for a laparoscopic cholecystectomy with intraoperative cholangiogram. OPERATIVE PROCEDURE: The patient was brought to the operating room and placed on the table in the supine position. He was placed under general endotracheal anesthesia. The patient's abdomen was prepped and draped in a sterile fashion. Marcaine 0.25% was infiltrated at each of the trocar sites as needed. A short transverse supraumbilical midline incision was made and deepened to the fascia. A Veress needle was inserted and after positive hanging drop test the abdomen was inflated with carbon dioxide gas. The fascia was then incised and 11 mm port was placed at the supraumbilical site. Insufflation continued and the laparoscope was placed. Initial examination showed no evidence of trocar injury. Inspection showed that the liver was fairly high up in the right upper quadrant. There was abundant omental fat which completely obscured the lower half of the liver and gallbladder. Small portions of the stomach and small and large bowel were seen that appeared normal. The patient was tilted to reverse Trendelenburg position and rolled slightly to the left. A 5 mm port was placed in the left upper quadrant just to the left of midline. Two 5 mm ports were placed higher up in the right upper quadrant. Using graspers the omentum was displaced off the undersurface of the liver. The gallbladder was identified. The gallbladder appeared somewhat thickened. There were a few filmy adhesions to the surrounding omentum. The gallbladder was grasped and elevated and the adhesions to the omentum were divided using Hook cautery. The gallbladder could then be further elevated. Dissection was then begun in the region of the gallbladder neck. There was some abundant pericholecystic fatty tissue and it was necessary to dissect through this after initially incising the peritoneum with Hook cautery. With further dissection the cholecystic artery was identified coursing directly to the gallbladder and this was clipped and divided. The cystic duct was clearly identified and dissected free circumferentially. The clip was placed on the cystic duct at the gallbladder neck and sergei was made. There was return of bile from the cystic duct. An Arrow balloon cholangiogram catheter was inserted into the cystic duct and the balloon was inflated. The patient was returned to a flat position. Using fluoroscopy an intraoperative cholangiogram was obtained with the injection of 30% Conray. Images showed complete filling of the common bile duct, common hepatic duct and intrahepatic radicles. There was free flow of contrast into the duodenum through normal tapering distal common bile duct. On one image there was a very small rounded lucency near the junction of the cystic duct and common bile duct which I believe represented a small air bubble and this was not seen on all images. The cholangiogram catheter was removed and cystic duct was clipped and divided. The gallbladder was then dissected free from the gallbladder bed using cautery dissection. There was clearly some scarring in the gallbladder bed and at least one large stone was identified within the gallbladder. When the gallbladder was freed it was placed in an Endopouch. The right upper quadrant was irrigated and inspected. There was no evidence of any bile leak and a few small oozing points on the gallbladder bed were controlled with cautery. Final inspection showed no bleeding or bile. The patient was returned to a flat position. The abdomen was deflated and the trocars were removed. The supraumbilical incision was extended to allow passage of the gallbladder and gallstones. The largest stone was approximately 3 to 3.5 cm in diameter and there was another that was approximately half that size with some small bits of stone also palpable within the gallbladder. The gallbladder was sent for permanent pathology. The peritoneum was closed with a running suture of 2-0 Vicryl. The fascia at the supraumbilical site was closed with interrupted simple sutures of 1- 0 Vicryl. The skin incisions were all closed with buried 4-0 Vicryl and Steri-Strips. Light dressings were applied. The patient tolerated the procedure well without apparent complication. He was awakened in the operating room, extubated and moved to the recovery room in stable condition.
== END 2020-05-12 13:55 | disposition home or self-care (01) ==
LOC: M SDC 07:29
PROVIDERS: ATTEND Surgery
DX: K80.20 Calculus of gallbladder without cholecystitis without obstruction (principal); I10 Essential (primary) hypertension; Z79.899 Other long term (current) drug therapy
CPT/HCPCS: 47563; 76000; 88304; J0131; J0690; J1100; J1885; J2250; J2370; J2405; J3010; Q9961